=== PATIENT | female | born 1995 | race Hispanic/Latino ===

== ENCOUNTER 2018-03-31 16:13 | Emergency (ER) | payer MEDICAID, OTHER ==
[2018-03-31] MEDS ORDERED: MAG HYDROX/AL HYDROX/SIMETH ES 30 ML SUSP UDCUP ONE (16:48)
[2018-03-31] MEDS ORDERED: LIDOCAINE HCL 2% VISCOUS 15 ML UDCUP ONE (16:48)
[2018-03-31] MEDS ORDERED: ONDANSETRON ODT 4 MG TAB ONE (16:49)
== END 2018-03-31 17:10 | disposition home or self-care (01) ==
LOC: EDH 16:13
DX: K29.70 Gastritis, unspecified, without bleeding (principal); K21.9 Gastro-esophageal reflux disease without esophagitis

== ENCOUNTER 2018-04-14 19:23 | Emergency (ER) | payer MEDICAID | END 2018-04-14 19:52 | disposition home or self-care (01) | LOC: EDH 19:23 | DX: M62.838 Other muscle spasm (principal); K21.9 Gastro-esophageal reflux disease without esophagitis | CPT/HCPCS: 99281 ==

== ENCOUNTER 2018-05-14 05:46 | Day surgery (SDC) | payer MEDICAID ==
[~2018-05-14] VITALS: Ht 152.4 cm; Wt 40.4 kg
[~2018-05-14 05:46] MED LIST: SODIUM CHLORIDE 0.9% 1000ML 1,000 ML IV ONE
[2018-05-14 06:06] VITALS: BP 113/78
[2018-05-14] MEDS ORDERED: LIDOCAINE HCL 2% 20ML ONE (06:36)
[2018-05-14] MEDS ORDERED: SUCCINYLCHOLINE CHLORIDE 20 MG/ML 10 ML VIAL ONE (06:36)
[2018-05-14] MEDS ORDERED: GLYCOPYRROLATE 0.2 MG/ML 5 ML VIAL ONE (06:36)
[2018-05-14] MEDS ORDERED: PROPOFOL 1000 MG/100 ML 100 ML IV ONE (06:36)
[2018-05-14 06:59] VITALS: BP 82/33
[2018-05-14 10:35] VITALS: BP 117/68
== END 2018-05-14 07:50 | disposition home or self-care (01) ==
LOC: DAH 05:46 → ENDO 05:46
PROVIDERS: ATTEND Internal Medicine Gastroenterology
DX: K62.89 Other specified diseases of anus and rectum (principal); K29.50 Unspecified chronic gastritis without bleeding; Z98.890 Other specified postprocedural states
CPT/HCPCS: 36415; 43239; 45380; 84703; 88305; 88312; A4606; J0330; J2704; J3490 ×2; J7030

== ENCOUNTER 2018-11-18 21:32 | Emergency (ER) | payer MEDICAID ==
[2018-11-18] MEDS ORDERED: ACETAMINOPHEN 325 MG TAB ONE (21:52)
[2018-11-18 22:14] LABS: BASOPHILS % (AUTO) 0.4 % (0.0-5.0); EOSINOPHILS % (AUTO) 0.3 % (0.0-8.0); HEMATOCRIT 40.1 % (36-48); LYMPHOCYTES % (AUTO) 8.9 % (21.0-51.0); MEAN CORPUSCULAR HEMOGLOBIN 28.5 pg (27.0-33.0); MEAN CORPUSCULAR HGB CONC 32.8 g/dL (32.0-36.0); MEAN CORPUSCULAR VOLUME 86.9 fL (79-99); MONOCYTES % (AUTO) 12.8 % (3.0-13.0); NEUTROPHILS % (AUTO) 77.6 % (40.0-77.0); PLATELET COUNT (AUTO) 140 K/uL (130-400); RED BLOOD CELL COUNT(AUTO) 4.61 MIL/uL (4.00-5.50); RED CELL DISTRIBUTION WIDTH 14.2 % (11.0-15.5); WHITE BLOOD COUNT (AUTO) 4.4 K/uL (4.8-10.8)
[2018-11-18 22:37] LABS: ALANINE AMINOTRANSFERASE 16 U/L (12-78); ALBUMIN 3.4 g/dL (3.5-5.0); ASPARTATE AMINOTRANSFERASE 16 U/L (10-37); BILIRUBIN,TOTAL 0.3 mg/dL (0.2-1.0); CARBON DIOXIDE 26 mmol/L (21-32); CHLORIDE 101 mmol/L (101-111); CREATINE KINASE, TOTAL 39 U/L (21-232); CREATININE 0.7 mg/dL (0.5-1.5); GLOMERULAR FILTR. RATE CALC 108 mL/min (>60); GLUCOSE,RANDOM 136 mg/dL (70-105); MYOGLOBIN 19 ng/mL (10-92); SODIUM SERUM 136 mmol/L (136-145); TOTAL PROTEIN, SERUM 7.4 g/dL (6.0-8.3); TROPONIN I < 0.04 ng/mL (0.00-0.06); UREA NITROGEN, BLOOD 8 mg/dL (7-18)
[2018-11-18 22:40] LABS: INR 1.05 (0.85-1.15); PARTIAL THROMBOPLASTIN TIME 34.8 SEC (26.3-35.5)
[2018-11-18 23:13] LABS: APPEARANCE,URINE Clear (CLEAR); BILIRUBIN,URINE Negative (NEGATIVE); COLOR,URINE Yellow (YELLOW); GLUCOSE, URINE (UA) Negative (NEGATIVE); KETONES,URINE Negative (NEGATIVE); LEUKOCYTE ESTERASE ,URINE Negative (NEGATIVE); NITRATE,URINE Negative (NEGATIVE); OCCULT BLOOD,URINE Trace (NEGATIVE); PROTEIN,URINE Negative (NEGATIVE); UROBILINOGEN,URINE 0.2 mg/dL (0.2-1.0)
[2018-11-18 23:27] LABS: BACTERIA,URINE None Seen /HPF (None Seen); MUCUS,URINE None Seen LPF (None Seen); RBC,URINE 0-1 /HPF (0-1); SQUAMOUS EPITHELIAL CELL,UR None Seen /HPF (0-2); WBC,URINE None Seen /HPF (0-1)
[2018-11-19] MEDS ORDERED: OSELTAMIVIR PHOSPHATE 75 MG CAP ONE (00:04)
== END 2018-11-19 00:13 | disposition home or self-care (01) ==
LOC: EDH 21:32
DX: J11.1 Influenza due to unidentified influenza virus with other respiratory manifestations (principal); R00.0 Tachycardia, unspecified; K21.9 Gastro-esophageal reflux disease without esophagitis
CPT/HCPCS: 36415; 71045; 80053; 81001; 82550; 83605; 83874; 84484; 84702; 85025; 85610; 85730; 87040; 87088; 87804; 93005

== ENCOUNTER 2018-11-21 14:47 | Emergency (ER) | payer MEDICAID ==
[2018-11-21] MEDS ORDERED: ACETAMINOPHEN 325 MG TAB ONE (16:05)
== END 2018-11-21 16:43 | disposition home or self-care (01) ==
LOC: EDH 14:47
DX: J02.9 Acute pharyngitis, unspecified (principal); K21.9 Gastro-esophageal reflux disease without esophagitis
CPT/HCPCS: 87880

== ENCOUNTER 2019-04-06 20:46 | Emergency (ER) | payer MEDICAID | END 2019-04-06 22:05 | disposition home or self-care (01) | LOC: EDH 20:46 | DX: N93.8 Other specified abnormal uterine and vaginal bleeding (principal); K21.9 Gastro-esophageal reflux disease without esophagitis | CPT/HCPCS: 81025 ==

== ENCOUNTER 2019-11-16 14:07 | Emergency (ER) | payer MEDICAID | END 2019-11-16 15:41 | disposition home or self-care (01) | LOC: EDH 14:07 | DX: R13.10 Dysphagia, unspecified (principal) | CPT/HCPCS: 99281 ==

== ENCOUNTER 2021-07-28 15:15 | Emergency (ER) | payer MEDICAID ==
[~2021-07-28] VITALS: Ht 149.9 cm; Wt 46.7 kg
[2021-07-28] MEDS ORDERED: ALBUHFA IH (17:40)
[2021-07-28] MEDS ORDERED: FLUT1DIS IH (17:40)
[2021-07-28 17:51] VITALS: BP 116/74
== END 2021-07-28 17:52 | disposition home or self-care (01) ==
LOC: EDH 15:15
DX: U07.1 COVID-19 (principal); Z79.51 Long term (current) use of inhaled steroids; Z79.899 Other long term (current) drug therapy
CPT/HCPCS: 71045; 87635; 87804 ×2; 99284; C9803

== ENCOUNTER 2022-03-12 18:06 | Emergency (ER) | payer MEDICAID ==
[~2022-03-12] VITALS: Ht 149.9 cm; Wt 43.5 kg
[~2022-03-12 18:06] MED LIST changes: +ALBUHFA IH; +FLUT1DIS IH; -SODIUM CHLORIDE 0.9% 1000ML 1,000 ML IV ONE
[2022-03-12 18:10] VITALS: BP 122/71
[2022-03-12] MEDS ORDERED: LORAZEPAM 0.5 MG TABLET PO ONE (18:30)
[2022-03-12] MEDS ORDERED: HYDR-3421 PO (19:01)
== END 2022-03-12 19:05 | disposition home or self-care (01) ==
LOC: EDH 18:06
DX: F41.9 Anxiety disorder, unspecified (principal); Z79.51 Long term (current) use of inhaled steroids; Z79.899 Other long term (current) drug therapy
CPT/HCPCS: 81025

== ENCOUNTER 2023-09-25 05:13 | Emergency (ER) | payer MEDICAID ==
[~2023-09-25] VITALS: Ht 149.9 cm; Wt 48.7 kg
[~2023-09-25 05:13] MED LIST changes: +HYDR-3421 PO
[2023-09-25 05:37] LABS: BASOPHILS # (AUTO) 0.03 K/uL (0.00-0.20); BASOPHILS % (AUTO) 0.4 % (0.0-5.0); EOSINOPHILS # (AUTO) 0.06 K/uL (0.00-0.70); EOSINOPHILS % (AUTO) 0.8 % (0.0-8.0); HEMATOCRIT 38.3 % (36-48); IMMATURE GRANULOCYTE ABSOLUTE 0.02 K/uL (0-1); LYMPHOCYTES # (AUTO) 3.1 K/uL (1.0-4.8); LYMPHOCYTES % (AUTO) 40.6 % (21.0-51.0); MEAN CORPUSCULAR HEMOGLOBIN 29.9 pg (27.0-33.0); MEAN CORPUSCULAR HGB CONC 32.6 g/dL (32.0-36.0); MEAN CORPUSCULAR VOLUME 91.6 fL (79-99); MONOCYTES # (AUTO) 0.8 K/uL (0.1-1.0); MONOCYTES % (AUTO) 9.9 % (3.0-13.0); NEUTROPHILS # (AUTO) 3.7 K/uL (1.8-7.7); PLATELET COUNT (AUTO) 225 K/uL (130-400); RED BLOOD CELL COUNT(AUTO) 4.18 MIL/uL (4.00-5.50); WHITE BLOOD COUNT (AUTO) 7.7 K/uL (4.8-10.8)
[2023-09-25 05:53] LABS: APPEARANCE,URINE CLEAR (CLEAR); BILIRUBIN,URINE NEGATIVE (NEGATIVE); COLOR,URINE COLORLESS (YELLOW); GLUCOSE, URINE (UA) NEGATIVE (NEGATIVE); KETONES,URINE NEGATIVE (NEGATIVE); LEUKOCYTE ESTERASE ,URINE NEGATIVE Leu/uL (NEGATIVE); NITRATE,URINE NEGATIVE (NEGATIVE); OCCULT BLOOD,URINE NEGATIVE (NEGATIVE); PROTEIN,URINE NEGATIVE (NEGATIVE); UROBILINOGEN,URINE 0.2 mg/dL (0.2-1.0)
[2023-09-25 05:54] LABS: ALBUMIN 3.8 g/dL (3.5-5.0); CREATININE 0.6 mg/dL (0.5-1.5)
[2023-09-25 05:56] LABS: POTASSIUM 2.9 mmol/L (3.5-5.1)
[2023-09-25 05:56] LABS: ADD UA MICROSCOPIC NO
[2023-09-25 05:58] LABS: BILIRUBIN,TOTAL 0.3 mg/dL (0.2-1.0); TOTAL PROTEIN, SERUM 7.5 g/dL (6.0-8.3)
[2023-09-25] MEDS ORDERED: IOHEXOL 350 MG/ML 100ML INFUS..BTL IV ONE (06:29)
[2023-09-25] MEDS ORDERED: POTASSIUM BICARB/CIT AC 25 MEQ TABLET.EFF PO ONE (06:30)
[2023-09-25 09:18] VITALS: BP 117/74; PULSE 84; RESP 16; O2SAT 100
== END 2023-09-25 09:21 | disposition home or self-care (01) ==
LOC: EDH 05:13
DX: R10.30 Lower abdominal pain, unspecified (principal); E87.6 Hypokalemia; Z79.51 Long term (current) use of inhaled steroids
CPT/HCPCS: 99285; 74177; 80053; 83690; 85025; 81003; 81025; 36415; Q9967